=== PATIENT | female | born 1995 | race Caucasian/White ===

== ENCOUNTER → 2020-08-02 07:44 | Outpatient (CLI) | payer BC, SELFPAY ==
--- NOTE | ~2020-08-02 | US_ITS ---
US thyroid DATE: 08/02/2020 08:06 INDICATION: Hypothyroidism TECHNIQUE: Real-time and color flow imaging of the thyroid gland COMPARISON: None FINDINGS: The right lobe of the thyroid gland measures 5.2 x 2.9 x 1.9 cm. The left lobe of the thyroid gland measures 5.2 x 2.1 x 1.9 cm. There is coarse and heterogeneous echotexture of both lobes of the thyroid gland without discrete mas s lesion identified. IMPRESSION: Coarse heterogeneous echotexture throughout both thyroid lobes; no discrete mass lesion i s noted Reviewed, dictated and finalized at Location [facility]. Reviewed, dictated and finalized at location A. IMPRESSION: Coarse heterogeneous echotexture throughout both thyroid lobes; no discrete mass lesion is noted
== END ==
PROVIDERS: Visit Provider Internal Medicine Endocrinology, Diabetes & Metabolism
DX: E03.9 Hypothyroidism, unspecified (principal); R93.89 Abnormal findings on diagnostic imaging of other specified body structures
CPT/HCPCS: 76536

== ENCOUNTER 2022-03-15 16:10 | Outpatient (CLI) | payer OTHER, SELFPAY ==
[2022-03-15 16:37] LABS: Basophils Percent Auto 0.3 % (0.2-1.2); Eosinophils Percent Auto 0.4 % (0-4.4); Hematocrit 41.9 % (37.0-47.0); Hemoglobin 13.5 g/dL (12.0-15.0); Immature Granulocyte Absolute 0.02 K/mm3 (0.00-0.031); Immature Granulocyte Percent A 0.2 % (0-0.5); Lymphocytes Absolute Auto 2.85 K/mm3 (0.9-3.2); Lymphocytes Percent Auto 27.7 % (18.3-44.2); Mean Corpuscular HGB Conc 32.2 g/dl (32-36); Mean Corpuscular Hemoglobin 28.1 pg (26-34); Mean Corpuscular Volume 87.3 fl (80-100); Mean Platelet Volume 10.4 fl (7.4-10.4); Monocytes Absolute Auto 0.6 K/mm3 (0.1-0.6); Monocytes Percent Auto 5.7 % (2.6-8.5); Neutrophils Absolute Auto 6.8 K/mm3 (1.3-6.7); Neutrophils Percent Auto 65.7 % (45.5-73.1); Platelet Count Result 218 k/mm3 (150-375); Red Cell Distribution Width 13.7 % (11.5-14.5); White Blood Count 10.3 K/mm3 (4.5-10.0)
[2022-03-15 16:54] LABS: Alanine Aminotransferase 14 U/L (4-35); Albumin Level 4.6 g/dL (3.5-5.1); Alkaline Phosphatase 75 U/L (38-126); Anion Gap 10 mmol/L (8-16); Aspartate Amino Transferase 28 U/L (14-36); Bilirubin,Total 0.3 mg/dL (0.2-1.3); Blood Urea Nitrogen 7 mg/dL (7-17); Calcium 9.1 mg/dL (8.4-10.2); Carbon Dioxide 21 mmol/L (22-30); Chloride 105 mmol/L (98-107); Cholesterol 213 mg/dL (0-200); Estimated Glomerular Filt Rate > 60; Glucose 92 mg/dL (65-110); HDL Direct 82 mg/dL; Potassium 4.1 mmol/L (3.4-5.0); Sodium 136 mmol/L (137-145); Triglycerides 108 mg/dL (<150)
[2022-03-15 17:01] LABS: LDL Cholesterol Direct 98 mg/dL
[2022-03-15 18:08] LABS: Vitamin D 25 Hydroxy 69.9 ng/mL
== END 2022-03-15 16:11 | disposition home or self-care (01) ==
LOC: ANHLAB 16:13
PROVIDERS: Visit Provider Nurse Practitioner
DX: R53.83 Other fatigue (principal); E55.9 Vitamin D deficiency, unspecified; E03.9 Hypothyroidism, unspecified; Z13.220 Encounter for screening for lipoid disorders; Z13.6 Encounter for screening for cardiovascular disorders
CPT/HCPCS: 36415; 80053; 80061; 82306; 84443; 85025

== ENCOUNTER 2022-03-17 10:52 | Outpatient (CLI) | payer OTHER, SELFPAY | END 2022-03-17 10:53 | disposition home or self-care (01) | LOC: ANHLAB 10:57 | PROVIDERS: PCP Physician Assistant; Visit Provider Obstetrics & Gynecology Gynecology | DX: O26.851 Spotting complicating pregnancy, first trimester (principal); O26.21 Pregnancy care for patient with recurrent pregnancy loss, first trimester | CPT/HCPCS: 36415; 84702 ==

== ENCOUNTER 2022-03-18 13:16 | Outpatient (CLI) | payer OTHER, SELFPAY ==
[2022-03-18 14:46] LABS: Basophils Percent Auto 0.4 % (0.2-1.2); Eosinophils Absolute Auto 0.1 K/mm3 (0-0.3); Eosinophils Percent Auto 0.6 % (0-4.4); Hematocrit 38.2 % (37.0-47.0); Hemoglobin 12.6 g/dL (12.0-15.0); Immature Granulocyte Absolute 0.03 K/mm3 (0.00-0.031); Immature Granulocyte Percent A 0.3 % (0-0.5); Lymphocytes Absolute Auto 2.83 K/mm3 (0.9-3.2); Lymphocytes Percent Auto 27.7 % (18.3-44.2); Mean Corpuscular Hemoglobin 28.3 pg (26-34); Mean Corpuscular Volume 85.7 fl (80-100); Mean Platelet Volume 10.1 fl (7.4-10.4); Monocytes Absolute Auto 0.6 K/mm3 (0.1-0.6); Monocytes Percent Auto 5.4 % (2.6-8.5); Neutrophils Absolute Auto 6.7 K/mm3 (1.3-6.7); Neutrophils Percent Auto 65.6 % (45.5-73.1); Platelet Count Result 214 k/mm3 (150-375); Red Blood Count 4.46 M/mm3 (4.2-5.4); Red Cell Distribution Width 13.6 % (11.5-14.5); White Blood Count 10.2 K/mm3 (4.5-10.0)
[2022-03-18 15:38] LABS: Vitamin D 25 Hydroxy 63.1 ng/mL
[2022-03-18 15:55] LABS: Hepatitis B Surface Antigen Negative (Negative); Rubella IgG Antibody 60.4 IU/ML
[2022-03-18 15:56] LABS: HIV 1/2 Ab P24 Ag Result Negative (Negative)
[2022-03-18 16:10] LABS: Hepatitis C Virus Antibody Negative (Negative)
[2022-03-18 16:33] LABS: Hemoglobin A1C 4.7 % (<5.7)
[2022-03-19 07:20] LABS: Rapid Plasma Reagin Non-Reactive (NonReactive)
== END 2022-03-18 13:17 | disposition home or self-care (01) ==
PROVIDERS: PCP Physician Assistant; Visit Provider Obstetrics & Gynecology Gynecology
DX: Z34.90 Encounter for supervision of normal pregnancy, unspecified, unspecified trimester (principal); Z3A.00 Weeks of gestation of pregnancy not specified
CPT/HCPCS: 36415; 82105; 82306; 82677; 83036; 84702; 85025; 86336; 86592; 86703; 86762; 86803; 86850; 86900; 86901; 87340; G0432

== ENCOUNTER 2022-03-24 13:33 | Outpatient (CLI) | payer OTHER, SELFPAY ==
--- NOTE | ~2022-03-24 | US_ITS ---
EXAMINATION: US OB <= 14 weeks fetus DATE: 03/24/2022 14:05 INDICATION: Spotting during first trimester . TECHNIQUE: Real-time pelvic ultrasound utilizing both a transvaginal and transabdominal probe was pe rformed. The interpreting radiologist was not present for the study. COMPARISON: None. FINDINGS: The uterus measures 14.9 x 10.5 x 7.6 cm. There is an intrauterine gestational sac. A yolk sac and f etal pole are identified. The crown rump length measures 7.2 cm, which correlates with an estimated g estational age of 13 weeks and 3 days. heart motion is identified measuring 134 beats per minut e (bpm) by M-mode Doppler. 11 x 4 x 5 mm hypoechoic region along the left inferior margin of the plac enta is equivocal for small subchorionic hematoma. The right and left ovaries are not visualized. There is no free fluid in the pelvis. IMPRESSION: 1. Single living fetus with heart rate of 134 bpm. 2. Gestational age by ultrasound of 13 weeks 3 day(s) +/- 1 week and 1 day(s) with ultrasound estima beto date of delivery (JUNAID) of 09/26/2022. 3. Possible very small subchorionic hematoma measuring 11 x 4 x 5 mm. Reviewed, dictated and finalized at location B. IMPRESSION: 1. Single living fetus with heart rate of 134 bpm. 2. Gestational age by ultrasound of 13 weeks 3 day(s) +/- 1 week and 1 day(s) with ultrasound estimated date of delivery (JUNAID) of 09/26/2022. 3. Possible very small subchorionic hematoma measuring 11 x 4 x 5 mm.
== END 2022-03-24 13:34 | disposition home or self-care (01) ==
LOC: ANHIMG 13:41
PROVIDERS: PCP Physician Assistant; Visit Provider Obstetrics & Gynecology Gynecology
DX: O26.851 Spotting complicating pregnancy, first trimester (principal); Z3A.13 13 weeks gestation of pregnancy
CPT/HCPCS: 76801

== ENCOUNTER → 2022-04-16 10:13 | Outpatient (CLI) | payer OTHER, SELFPAY ==
--- NOTE | ~2022-04-16 | US_ITS ---
US OB limited 04/16/2022 10:33 Indication: Subchorionic hemorrhage. Procedure: High-resolution Limited obstetrical ultrasound Comparison: 03/24/2022 Findings: There is a single living intrauterine in breech presentation with heart rat e of 149 BPM. Placenta is posterior measuring 3.5 cm to the cervix. No evidence for subchorionic hemo rrhage on the current study. Amniotic fluid is subjectively normal. Impression: 1: Single living intrauterine in breech presentation. 2: Interval resolution of subchorionic hematoma Reviewed, dictated and finalized at location B. Impression: 1: Single living intrauterine in breech presentation. 2: Interval resolution of subchorionic hematoma
== END ==
PROVIDERS: PCP Physician Assistant; Visit Provider Obstetrics & Gynecology Gynecology
DX: O36.8920 Maternal care for other specified fetal problems, second trimester, not applicable or unspecified (principal); Z3A.00 Weeks of gestation of pregnancy not specified
CPT/HCPCS: 76815

== ENCOUNTER → 2022-05-07 10:18 | Outpatient (CLI) | payer OTHER, SELFPAY ==
--- NOTE | ~2022-05-07 | US_ITS ---
EXAMINATION: US OB /maternal detail DATE: 05/07/2022 11:06 INDICATION: Second trimester anatomic survey, spotting TECHNIQUE: Real-time ultrasound of the pelvis was performed. COMPARISON: None. FINDINGS: There is a single living fetus transverse lie. The placenta is posterior and 5.5 cm from the internal cervical os. heart rate is 143 beats per minute (bpm). cardiac activity and movem ent are noted. The amniotic fluid index is subjectively normal. The following anatomy was identified as normal: 4 chamber heart 3 vessel cord cord insertion kidneys urinary bladder stomach spine ventricles cisterna magna cerebellum The following biometric data were obtained: Biparietal diameter (BPD): 4.4 cm; head circumference (HC): 17.0 cm; abdominal circumference (AC): 15 .1 cm; femur length (FL): 2.9 cm. These measurements are concordant. Estimated weight is 307 g +/- 46 g, which correlates with the 45th percentile when 09/26/2022 i s used as estimated date of delivery. As single measurements, these parameters are each equal to the following estimated gestational ages w ith ranges of +/- 2 standard deviations: BPD: 19 weeks 3 days ( 17 weeks 5 days - 21 weeks 1 days). HC: 19 weeks 5 days ( 18 weeks 1 days - 21 weeks 1 days). AC: 20 weeks 2 days ( 18 weeks 2 days - 22 weeks 3 days). FL: 19 weeks 0 days ( 17 weeks 1 days - 20 weeks 5 days). estimated gestational age based solely on measurements from this exam is 19 weeks 4 days +/- 1 weeks 3 days. IMPRESSION: 1. Single living fetus in transverse lie. 2. Estimated weight is 307 g +/- 46 g, which correlates with the 45th percentile when 2 is used as estimated date of delivery. Reviewed, dictated and finalized at location A. IMPRESSION: 1. Single living fetus in transverse lie. 2. Estimated weight is 307 g +/- 46 g, which correlates with the 45th per centile when 09/26/2022 is used as estimated date of delivery.
== END ==
PROVIDERS: PCP Physician Assistant; Visit Provider Obstetrics & Gynecology Gynecology
DX: O26.852 Spotting complicating pregnancy, second trimester (principal); Z3A.19 19 weeks gestation of pregnancy
CPT/HCPCS: 76805

== ENCOUNTER 2022-09-24 00:01 | Inpatient (IN) | payer OTHER, SELFPAY ==
[2022-09-24] VITALS (64 sets, daily range): BP systolic 84–141; BP diastolic 17–125; PULSE 47–141; RESP 16; TEMP 36.6–37.1; O2SAT 96–100; BMI 40.2
--- NOTE | 2022-09-24 00:38 | LDADM ---
This patient, Sue Leos, was admitted to Labor/Delivery/Recovery 109 on 09/24/22 at 00:01. Plans for labor, pain management and were discussed with patient. Patient/family oriented to hospital policies and general routines including ID bracelet, bed and alarms, visiting hours, pain management, procedures, bathroom and other care routines, personal items, smoking policy, room service/diet and guest tray routines, infant security routines, and visiting hours. Patient/Family are encouraged to report perceived risks to care and to ask questions if they do not understand what they are told or what they should do. See OBIX for further documentation.
[2022-09-24 01:03] LABS: Basophils Percent Auto 0.3 % (0.2-1.2); Eosinophils Absolute Auto 0.1 K/mm3 (0-0.3); Eosinophils Percent Auto 0.7 % (0-4.4); Hematocrit 38.3 % (37.0-47.0); Hemoglobin 12.5 g/dL (12.0-15.0); Immature Granulocyte Absolute 0.02 K/mm3 (0.00-0.031); Immature Granulocyte Percent A 0.2 % (0-0.5); Lymphocytes Absolute Auto 2.96 K/mm3 (0.9-3.2); Lymphocytes Percent Auto 32.2 % (18.3-44.2); Mean Corpuscular HGB Conc 32.6 g/dl (32-36); Mean Corpuscular Volume 82.7 fl (80-100); Mean Platelet Volume 11.7 fl (7.4-10.4); Monocytes Absolute Auto 0.6 K/mm3 (0.1-0.6); Monocytes Percent Auto 6.7 % (2.6-8.5); Neutrophils Absolute Auto 5.5 K/mm3 (1.3-6.7); Neutrophils Percent Auto 59.9 % (45.5-73.1); Platelet Count Result 191 k/mm3 (150-375); Red Blood Count 4.63 M/mm3 (4.2-5.4); Red Cell Distribution Width 14.4 % (11.5-14.5); White Blood Count 9.2 K/mm3 (4.5-10.0)
[2022-09-24] MEDS: AMPICILLIN 2 GM/NS 100 ML 2 GM/100 ML BAG IVPB (01:10)
[2022-09-24] MEDS: LACTATED RINGERS 1,000 ML 125 ML IV CONT ×2 (01:10→02:48)
[2022-09-24 01:55] LABS: HIV 1/2 Ab P24 Ag Result Negative (Negative)
--- NOTE | 2022-09-24 02:25 | WPDANESEPP ---
Anes - Eval Pre Procedure Procedure: labor epidural Date/Time: 09/24/22 02:25 Pre Op Diagnosis: IOL Patient Data Age: 27 Gender: F Height: 1.73 m Weight: 120 kg Last Vital Signs Temp 36.6 C 09/24/22 00:30 Pulse 75 09/24/22 02:16 BP 120/99 H 09/24/22 02:16 O2 Del Method Room Air 09/24/22 00:37 Allergies Allergy/AdvReac Type Severity Reaction Status Date / Time Pertussis Vaccines Allergy Severe Anaphylactic Verified 09/06/22 12:34 Shock onion Allergy Unknown Headache Verified 09/06/22 12:34 Home Medications Medication Instructions Recorded Confirmed Type albuterol sulfate 90 mcg/actuation 2 puff inhalation QID #8 grams 11/15/19 09/24/22 Rx aerosol inhaler (ProAir HFA) metformin 500 mg tablet 1,000 mg PO BID 11/15/19 09/24/22 History cholecalciferol (vitamin D3) 50 50 mcg PO DAILY 09/06/22 09/24/22 History mcg (2,000 unit) capsule (Vitamin D3) escitalopram oxalate 5 mg tablet 20 mg PO DAILY 09/06/22 09/24/22 History levothyroxine 175 mcg tablet 175 mcg PO DAILY 09/06/22 09/06/22 History (Synthroid) Laboratory Tests 09/24/22 09/24/22 09/24/22 00:35 00:35 00:35 WBC 9.2 K/mm3 K/mm3 (4.5-10.0) RBC 4.63 M/mm3 M/mm3 (4.2-5.4) Hgb 12.5 g/dL g/dL (12.0-15.0) Hct 38.3 % % (37.0-47.0) MCV 82.7 fl fl (80-100) MCH 27.0 pg pg (26-34) MCHC 32.6 g/dl g/dl (32-36) RDW 14.4 % % (11.5-14.5) Plt Count 191 k/mm3 k/mm3 (150-375) MPV 11.7 fl H fl (7.4-10.4) Immature Gran % (Auto) 0.2 % % (0-0.5) Neut % (Auto) 59.9 % % (45.5-73.1) Lymph % (Auto) 32.2 % % (18.3-44.2) [place] % (Auto) 6.7 % % (2.6-8.5) Eos % (Auto) 0.7 % % (0-4.4) Baso % (Auto) 0.3 % % (0.2-1.2) Lymph # (Auto) 2.96 K/mm3 K/mm3 (0.9-3.2) [place] # (Auto) 0.6 K/mm3 K/mm3 (0.1-0.6) Eos # (Auto) 0.1 K/mm3 K/mm3 (0-0.3) Baso # (Auto) 0.0 K/mm3 K/mm3 (0.0-0.1) Abs Immat Gran (auto) 0.02 K/mm3 K/mm3 (0.00-0.031) Absolute Neuts (auto) 5.5 K/mm3 K/mm3 (1.3-6.7) Absolute Nucleated RBC 0.0 K/mm3 K/mm3 (0.0-0.012) Nucleated RBC % 0.0 % % (0.0-0.2) RPR Pending HIV 1&2 Ab/P24 Ag 4thGn Blood Type B Positive Antibody Screen Negative 09/24/22 00:35 WBC RBC Hgb Hct MCV MCH MCHC RDW Plt Count MPV Immature Gran % (Auto) Neut % (Auto) Lymph % (Auto) [place] % (Auto) Eos % (Auto) Baso % (Auto) Lymph # (Auto) [place] # (Auto) Eos # (Auto) Baso # (Auto) Abs Immat Gran (auto) Absolute Neuts (auto) Absolute Nucleated RBC Nucleated RBC % RPR HIV 1&2 Ab/P24 Ag 4thGn Negative (Negative) Blood Type Antibody Screen Patient hx anesthesia problems: none Family hx anesthesia problems: none Results Review: All pre-operative results and documents have been reviewed as part of the pre-operative evaluation. [facility] Past Medical History Medical History Hypothyroidism Migraine headache PCOS (polycystic ovarian syndrome) Surgical History Surgical History History of tonsillectomy and adenoidectomy (~1998) History of wisdom tooth extraction (~2013) Family History Family History Grandparent Alzheimer disease Mother Mitral valve prolapse Social History Social History Social History: pt drinks 2 cups of caffeine per day Smoking status: Never smoker Second hand tobacco smoke exposure: No Alcohol intake: current
[2022-09-24] MEDS: OXYTOCIN 30 UNITS/NS 500 ML 30 UNITS/500 ML BAG 125 UNITS IV CONT (03:24)
--- NOTE | 2022-09-24 03:45 | WPDOBADMIT ---
Obstetrics - Admit Note Admission Note: record reviewed. No pertinent additions to the history and/or any subsequent changes in the physical findings that are not consistent with the expected course of the were found. Additions to the history and/or subsequent changes in the physical findings follow. None. Pt arrived in spontaneous labor, having regular uterine contractions.
--- NOTE | 2022-09-24 03:46 | P.PCNOB_ITS ---
OB - Delivery Note Procedure Delivery date: 09/24/22 Procedure: Events: Positive Group B Strep (GBS) Intrapartal Events: Other (Precipitous labor) Induction method: None Delivery monitor: External FHT and External Uterine Route of delivery: Episiotomy description: None Laceration Description: Superficial (bilateral periurethral laceration x 2, hemostatic. No repair required. ) Specimen: No Quantitative Blood Loss (ml): 150 Anesthesia type: Epidural Disposition: Floor Narrative: Called at 0220 that pt was 7cm and requesting epidural. Called at 0257 that pt was 8cm and had SROM. CNM en route to hospital at that time. Called at 0301 that pt was complete and 0 station. Arrived to bedside at 0321 and was under the warmer being cared for by staff. Pt with legs in stirrups, and remainder of umbilical cord clamped and near introitus. Cord blood obtained and placenta delivered at 0326. [place] Baby Date of : 09/24/22 Time of : 03:17 Weeks of gestation at delivery: 39 gender: Male Weight (pounds): 8 Weight (ounces): 2 presentation: vertex Placenta delivery description: Spontaneous Cord Vessel Description: 3 Vessels score one minute: 6 score five minutes: 9
--- NOTE | 2022-09-24 03:56 | PM.OBDSVD ---
DS: Admitting Diagnosis Discharge Date 09/26/22 Admitting Diagnosis labor Lanre's/Hypothyroidism Depression PCOS Hx Migraines GBS+ in DS: Discharge Diagnosis Discharge Diagnosis (1) PCOS (polycystic ovarian syndrome): Code(s): E28.2 - Polycystic ovarian syndrome Status: Chronic (2) Migraine headache: Code(s): G43.909 - Migraine, unspecified, not intractable, without status migrainosus Status: Chronic (3) Hypothyroidism: Code(s): E03.9 - Hypothyroidism, unspecified Status: Chronic (4) Anxiety disorder, unspecified: Code(s): F41.9 - Anxiety disorder, unspecified Status: Acute (5) Depression: Code(s): F32.A - Depression, unspecified Status: Acute (6) (normal spontaneous vaginal delivery): Code(s): O80 - Encounter for full-term uncomplicated delivery Status: Acute (7) Mother currently breast-feeding: Code(s): Z39.1 - Encounter for care and examination of lactating mother Status: Acute OB - DS: Summary Hospital Course Hospital Course: Uncomplicated OB Procedures : None OB Procedures Intrapartum: Spontaneous Vag Delivery (attended by RN) and GBS prophylaxis OB Procedures: : None Peripartum Data Infant Delivery Method: Natural Vaginal Laceration Description: Superficial Episiotomy description: None complications: none Time Spent with Patient Time attestation: Total time spent providing and/or coordinating discharge services: Exam Narrative: Alert and oriented. Mood is pleasant and cooperative. Urinating without difficulty or discomfort. Vaginal bleeding WNL. Denies passing any large clots. Perineum with minimal edema. Const: General: healthy appearing, no acute distress, alert and awake Orientation/consciousness: patient oriented x3 Limitations: no limitations Resp: Effort & Inspection: normal respiratory effort Auscultation: clear to auscultation bilaterally Cardio: Rate: regular rate GI: Inspection: normal to inspection Neuro: General: patient oriented x3 Extrem: General: normal to inspection Psych: Appearance: grossly normal Mental Status: mental status grossly normal Affect: normal affect Thought process: Normal thought process present DS: Data Data Completed and Pending Labs on day of discharge: Labs from last 24 hours 09/24/22 09/24/22 09/24/22 00:35 00:35 00:35 WBC RBC Hgb Hct MCV MCH MCHC RDW Plt Count MPV Immature Gran % (Auto) Neut % (Auto) Lymph % (Auto) [place] % (Auto) Eos % (Auto) Baso % (Auto) Lymph # (Auto) [place] # (Auto) Eos # (Auto) Baso # (Auto) Abs Immat Gran (auto) Absolute Neuts (auto) Absolute Nucleated RBC Nucleated RBC % RPR Pending HIV 1&2 Ab/P24 Ag 4thGn Negative Blood Type B Positive Antibody Screen Negative 09/24/22 00:35 WBC 9.2 RBC 4.63 Hgb 12.5 Hct 38.3 MCV 82.7 MCH 27.0 MCHC 32.6 RDW 14.4 Plt Count 191 MPV 11.7 H Immature Gran % (Auto) 0.2 Neut % (Auto) 59.9 Lymph % (Auto) 32.2 [place] % (Auto) 6.7 Eos % (Auto) 0.7 Baso % (Auto) 0.3 Lymph # (Auto) 2.96 [place] # (Auto) 0.6 Eos # (Auto) 0.1 Baso # (Auto) 0.0 Abs Immat Gran (auto) 0.02 Absolute Neuts (auto) 5.5 Absolute Nucleated RBC 0.0 Nucleated RBC % 0.0 RPR HIV 1&2 Ab/P24 Ag 4thGn Blood Type Antibody Screen Discharge Plan Discharge Attending physician on discharge: Jammie Herman Discharging Clinician: Danna Foreman Anticipated Discharge Date/Time: 09/26/22 11:23 Patient Disposition: Home, Self-Care Activity: may shower, no straining and pelvic rest Diet: as tolerated and regular Discharge Instructions: Continue vitamin daily and vitamin D supplement (if taking). You may take 1000mg tylenol every 6 hours and Ibuprofen (Motrin) 600mg every 6 hours. Patient Instructions: Antibiotic Fo
[2022-09-24] MEDS: BENZOCAINE 20% AER SPR (*SP) 56 GM CAN 1 SPRAY TOPICAL (05:27)
[2022-09-24] MEDS: WITCH HAZEL 40 PADS 1 PAD TOPICAL (05:27)
[2022-09-24] MEDS: DOCUSATE SODIUM 100 MG CAPSULE PO ×2 (08:15→19:28)
[2022-09-24] MEDS: MULTIVIT/MIN/PREN/FOL AC/IRON TABLET 1 TAB PO (08:15)
[2022-09-24] MEDS: LEVOTHYROXINE SODIUM 100 MCG, LEVOTHYROXINE SODIUM 75 MCG 175 MCG PO (08:15)
[2022-09-24] MEDS: ACETAMINOPHEN 325 MG TABLET 650 MG PO ×2 (08:15→21:15)
[2022-09-24] MEDS: IBUPROFEN 600 MG TABLET PO ×2 (13:00→19:28)
--- NOTE | 2022-09-24 14:29 | PC.NURSE ---
[id number] Introductions were made, then consulted with patient to assess needs related to . Mother led the conversation with her?plans to feed?her infant and the?experience so far. Resources provided for inpatient and outpatient services using a resource guide and mom/baby guide. Mother voiced understanding of information and requests assistance. Mother works well with her infant with encouragement and education. Encouraged understanding of the benefits of skin to skin (unwrapping and placing vertically on her chest), responsive feeding and how to watch for early feeding signs, frequency of feeding on demand about every 8-12 times in 24 hours (every 2-3 hours), milk production, duration of feeding, signs of adequate intake/output and how to record on the feeding sheet. Reviewed positioning and ear, shoulder, hip alignment, supporting the breast, asymmetrical latch (off-center), and leading with the chin with a big open side gape. Attempts were made to the left breast. would latch, take a few sucks and detach. After 15-20 min of attempting to encourage to latch on the left breast using different positions working with some natural instincts infant would make more efforts yet still not maintain latch. latched optimally to the right breast in football position. Education given to mother of how to visualize suck/swallow ratios and drinking at the breast. was able to maintain latch without discomfort to mother. Nipple care reviewed with optimal latch and good positioning. Reviewed good handwashing when or touching the breast/nipples to prevent infection. Resources used to facilitate learning were used with the tool and mom/baby guide. Mother voiced understanding of responsive feedings, stimulating with skin to skin, hand expressed colostrum, massage touch, talking to to encourage if it has been 2 -3 hours since the start of the last , to call if does not latch or there is discomfort with . Reported to the primary RN.
[2022-09-24 14:49] LABS: Rapid Plasma Reagin Non-Reactive (NonReactive)
[2022-09-24] MEDS: metFORMIN HCL 500 MG TABLET 1000 MG PO (19:28)
[2022-09-24] MEDS: ESCITALOPRAM OXALATE 10 MG TABLET 20 MG PO (19:28)
[2022-09-25] MEDS: IBUPROFEN 600 MG TABLET PO ×3 (01:14→16:00)
[2022-09-25 01:15] VITALS: BP 114/74; PULSE 72; RESP 16; TEMP 36.8; O2SAT 99
[2022-09-25 05:31] LABS: Hematocrit 33.3 % (37.0-47.0); Hemoglobin 10.5 g/dL (12.0-15.0)
[2022-09-25] MEDS: LEVOTHYROXINE SODIUM 100 MCG, LEVOTHYROXINE SODIUM 75 MCG 175 MCG PO (09:27)
[2022-09-25] MEDS: BENZOCAINE 20% AER SPR (*SP) 56 GM CAN 1 SPRAY TOPICAL (09:27)
[2022-09-25] MEDS: MULTIVIT/MIN/PREN/FOL AC/IRON TABLET 1 TAB PO (09:27)
[2022-09-25] MEDS: DOCUSATE SODIUM 100 MG CAPSULE PO ×2 (09:27→16:00)
[2022-09-25] MEDS: LANOLIN (LANSINOH) 7.5 GM CREAM 1 APPLIC TOPICAL (09:28)
[2022-09-25] MEDS: WITCH HAZEL 40 PADS 1 PAD TOPICAL (09:28)
[2022-09-25 09:30] VITALS: BP 113/76; PULSE 71; RESP 16; TEMP 36.6; O2SAT 99
--- NOTE | 2022-09-25 12:17 | WPDANLDPN2 ---
Anes-Prog Note L&D Date/Time: 09/25/22 12:17 Comfortable throughout: labor and delivery Neuraxial method: epidural Epidural/Spinal procedure site: clean & non-tender Neuro status: Neuro function grossly intact. Cardiovascular status: normal Respiratory status: normal Airway patency: baseline Mental status: baseline Post-Op hydration status: normal Vital Signs: Last Vital Signs Temp 36.8 C 09/25/22 01:15 Pulse 72 09/25/22 01:15 Resp 16 09/25/22 01:15 BP 114/74 09/25/22 01:15 Pulse Ox 99 09/25/22 01:15 O2 Del Method Room Air 09/24/22 13:20 Pain score (VAS): 12/07 I/O: Intake & Output 09/24/22 09/25/22 09/25/22 23:59 07:59 15:59 Intake Total 240 Balance 240 Post-procedural complaints: none Patient feedback: Patient satisfied with anesthetic care.
[2022-09-25] MEDS: ACETAMINOPHEN 325 MG TABLET 650 MG PO ×2 (12:45→20:30)
--- NOTE | 2022-09-25 13:29 | P.PNOB_ITS ---
OB - PN: Subj Subjective Date/time seen: 09/25/22 1310 Patient comments: no complaints and pain well controlled baby status: doing well and nursing well [place] feeding status: exclusively breast feeding OB - PN: Obj Data Labs CBC & Chem 7: 09/25/22 05:19 Labs: Laboratory Results - last 24 hr 09/24/22 09/25/22 00:35 05:19 Hgb 10.5 L Hct 33.3 L RPR Non-reactive OB - PN A/P Plan day: 1 Plan: routine care Time Spent With Patient Time: Total time spent is greater than 50% in coordination of care (as documented) at patient's floor/unit and/or counseling patient: Review of Systems Review of Systems: All systems reviewed & are unremarkable except as noted in HPI and below Exam Narrative: Alert and oriented. Mood is pleasant and cooperative. Urinating without difficulty. Denies passing any large clots. Perineum with minimal edema. Const: General: cooperative, healthy appearing and no acute distress Orientation/consciousness: patient oriented x3 Limitations: no limitations Resp: Effort & Inspection: normal respiratory effort Auscultation: clear to auscultation bilaterally Cardio: Rate: regular rate GI: Inspection: normal to inspection Neuro: General: patient oriented x3 Extrem: General: normal to inspection Psych: Appearance: grossly normal Mental Status: mental status grossly normal Affect: normal affect Thought process: Normal thought process present
[2022-09-25] MEDS: ESCITALOPRAM OXALATE 10 MG TABLET 20 MG PO (20:29)
[2022-09-25] MEDS: metFORMIN HCL 500 MG TABLET 1000 MG PO (20:29)
[2022-09-25 20:30] VITALS: BP 126/69; PULSE 69; RESP 18; TEMP 36.6; O2SAT 99
[2022-09-26] MEDS: IBUPROFEN 600 MG TABLET PO ×2 (00:50→09:31)
[2022-09-26] MEDS: ACETAMINOPHEN 325 MG TABLET 650 MG PO (05:00)
[2022-09-26] MEDS: LEVOTHYROXINE SODIUM 100 MCG, LEVOTHYROXINE SODIUM 75 MCG 175 MCG PO (06:32)
[2022-09-26 07:50] VITALS: BP 128/86; PULSE 60; RESP 16; TEMP 36.7; O2SAT 98
[2022-09-26] MEDS: metFORMIN HCL 500 MG TABLET PO (09:30)
[2022-09-26] MEDS: DOCUSATE SODIUM 100 MG CAPSULE PO (09:30)
[2022-09-26] MEDS: MULTIVIT/MIN/PREN/FOL AC/IRON TABLET 1 TAB PO (09:31)
--- NOTE | 2022-09-26 11:21 | PM.OBPNVD ---
OB - PN: Subj Subjective Date/time seen: 09/26/22 11:10 Patient comments: no complaints and pain well controlled baby status: doing well and nursing well [place] feeding status: exclusively breast feeding OB - PN: Obj Data Labs CBC & Chem 7: 09/25/22 05:19 OB - PN A/P Plan day: 2 Plan: discharge home Time Spent With Patient Time: Total time spent is greater than 50% in coordination of care (as documented) at patient's floor/unit and/or counseling patient: Review of Systems Review of Systems: All systems reviewed & are unremarkable except as noted in HPI and below Exam Narrative: Alert and oriented. Mood is pleasant and cooperative. Urinating without difficulty or discomfort. Vaginal bleeding WNL. Denies passing any large clots. Perineum with minimal edema. Const: General: healthy appearing, no acute distress, alert and awake Orientation/consciousness: patient oriented x3 Limitations: no limitations Resp: Effort & Inspection: normal respiratory effort Auscultation: clear to auscultation bilaterally Cardio: Rate: regular rate GI: Inspection: normal to inspection Neuro: General: patient oriented x3 Extrem: General: normal to inspection Psych: Appearance: grossly normal Mental Status: mental status grossly normal Affect: normal affect Thought process: Normal thought process present
[2022-09-27 09:03] VITALS: BP 137/83; PULSE 68; RESP 20; TEMP 37; O2SAT 98
== END 2022-09-26 12:37 | disposition home or self-care (01) | DRG 806 ==
LOC: ANHLDR 00:04 → ANHOB2 05:46
PROVIDERS: Advanced Practice Midwife; Admitting Provider Obstetrics & Gynecology Gynecology; PCP Physician Assistant; Visit Provider Obstetrics & Gynecology Gynecology
DX: O62.3 Precipitate labor (principal); O99.354 Diseases of the nervous system complicating childbirth; Z37.0 Single live birth; Z3A.39 39 weeks gestation of pregnancy; O99.824 Streptococcus B carrier state complicating childbirth; O99.284 Endocrine, nutritional and metabolic diseases complicating childbirth; E03.9 Hypothyroidism, unspecified; O71.82 Other specified trauma to perineum and vulva; E28.2 Polycystic ovarian syndrome; O99.344 Other mental disorders complicating childbirth; F41.9 Anxiety disorder, unspecified; F32.A Depression, unspecified; G43.909 Migraine, unspecified, not intractable, without status migrainosus
CPT/HCPCS: 36415; 85014; 85018; 85025; 86592; 86703; 86850; 86900; 86901; A9270; G0432; J0290; J2590; J2795; J7120

== ENCOUNTER → 2024-01-06 11:14 | Outpatient (CLI) | payer OTHER, SELFPAY ==
--- NOTE | ~2024-01-06 | US_ITS ---
EXAMINATION: US OB transvaginal DATE: 01/06/2024 11:36 INDICATION: First trimester dating TECHNIQUE: Real-time pelvic transabdominal and transvaginal ultrasound was performed. COMPARISON: None. FINDINGS: The uterus measures 9.8 x 6.8 x 7.8 cm. There is an intrauterine gestational sac. A yolk sa c is identified. heart motion is identified measuring 168 beats per minute (bpm) by M-mode Dopp ler. The crown rump length measures 16 mm, which correlates with an estimated gestational age o f 8 weeks and 0 day(s) (+/-) 5 day(s). The left ovary is not visualized however no left adnexal abnormality is seen. The right ovary measure s 3.4 x 3.1 x 2.3 cm. There is normal vascular flow in the right ovary. There is no free fluid in the pelvis. IMPRESSION: 1. Live intrauterine with an estimated gestational age of 8 weeks and 0 day(s) (+/-) 5 day( s) and an estimated delivery date of 08/17/2024. Reviewed, dictated and finalized at location B. [employer] WORK[employer] IMPRESSION: 1. Live intrauterine with an estimated gestational age of 8 weeks and 0 day(s) (+/-) 5 day(s) and an estimated delivery date of 08/17/2024.
== END ==
PROVIDERS: PCP Advanced Practice Midwife; Visit Provider Advanced Practice Midwife
DX: Z36.87 Encounter for antenatal screening for uncertain dates (principal)
CPT/HCPCS: 76817

== ENCOUNTER 2024-02-15 12:50 | Outpatient (CLI) | payer OTHER, SELFPAY ==
--- NOTE | ~2024-02-15 | US_ITS ---
EXAMINATION: US OB <= 14 weeks fetus DATE: 02/15/2024 13:10 INDICATION: Spotting during first trimester TECHNIQUE: Real-time pelvic transabdominal and transvaginal ultrasound was performed. COMPARISON: 01/06/2024 FINDINGS: The uterus measures 16.7 x 7.7 x 12.0 cm. There is an intrauterine gestational sac. The [place] cent[place] is anterior. There is a possible synechia. heart motion is identified measuring 142 beats per minute (bpm) by M-mode Doppler. The crown rump length measures 8.6 cm, which correlates wi an estimated gestational age of 14 weeks and 3 day(s) (+/-) 9 day(s). There is no free fluid in th e pelvis. IMPRESSION: 1. Live intrauterine with an estimated gestational age of 14 weeks and 3 day(s) (+/-) 9 day (s) and an estimated delivery date of 08/12/2024. 2. No sonographic correlate for spotting. 3. Possible synechia. Reviewed, dictated and finalized at location F. IMPRESSION: 1. Live intrauterine with an estimated gestational age of 14 weeks an d 3 day(s) (+/-) 9 day(s) and an estimated delivery date of 08/12/2024. 2. No sonographic correlate for spotting. 3. Possible synechia.
== END 2024-02-15 12:51 ==
PROVIDERS: PCP Obstetrics & Gynecology Gynecology; Visit Provider Obstetrics & Gynecology Gynecology
DX: O26.852 Spotting complicating pregnancy, second trimester (principal); Z3A.00 Weeks of gestation of pregnancy not specified
CPT/HCPCS: 76801

== ENCOUNTER 2024-08-01 21:26 | Inpatient (IN) | payer OTHER, SELFPAY ==
[2024-08-01] VITALS (24 sets, daily range): BP systolic 112–116; BP diastolic 67–80; PULSE 72–108; TEMP 36.3–36.4; O2SAT 97–100; BMI 42.0
--- NOTE | 2024-08-01 22:19 | OBADM ---
This patient, Sue Leos, admitted to the OB room Labor/Delivery/Recovery 107 for observation. Patient/family oriented to hospital policies and general routines including ID bracelet, bed and alarms, visiting hours, pain management, procedures, bathroom and other care routines, personal items, smoking policy, room service/diet, and visiting hours. Patient/Family are encouraged to report perceived risks to care and to ask questions if they do not understand what they are told or what they should do.
--- NOTE | 2024-08-01 22:27 | PC.NURSE ---
Call placed to [facility] with report of pt, SROM @ 1999 clear fluid, FHR, CTX, SVE,.Order to admit pt. FHR arrhythmia explained, unable to consistently trace FHR, however FHR is adubile. CNM is okay with FHR arrhythmia monitoring. CNM to come in.
[2024-08-01 22:38] LABS: Basophils Percent Auto 0.2 % (0.2-1.2); Eosinophils Absolute Auto 0.1 K/mm3 (0-0.3); Eosinophils Percent Auto 0.6 % (0-4.4); Hematocrit 39.6 % (37.0-47.0); Hemoglobin 13.5 g/dL (12.0-15.0); Immature Granulocyte Absolute 0.02 K/mm3 (0.00-0.031); Immature Granulocyte Percent A 0.2 % (0-0.5); Lymphocytes Absolute Auto 3.14 K/mm3 (0.9-3.2); Lymphocytes Percent Auto 31.9 % (18.3-44.2); Mean Corpuscular HGB Conc 34.1 g/dl (32-36); Mean Corpuscular Hemoglobin 30.3 pg (26-34); Mean Corpuscular Volume 88.8 fl (80-100); Monocytes Absolute Auto 0.7 K/mm3 (0.1-0.6); Monocytes Percent Auto 6.7 % (2.6-8.5); Neutrophils Absolute Auto 5.9 K/mm3 (1.3-6.7); Neutrophils Percent Auto 60.4 % (45.5-73.1); Platelet Count Result 170 k/mm3 (150-375); Red Blood Count 4.46 M/mm3 (4.2-5.4); Red Cell Distribution Width 13.7 % (11.5-14.5); White Blood Count 9.8 K/mm3 (4.5-10.0)
[2024-08-01] MEDS: CALCIUM CARBONATE (TUMS) 500 MG (200 MG ELEMENTAL) PO (22:41)
--- NOTE | 2024-08-01 22:41 | WPDOBADMIT ---
Obstetrics - Admit Note Admission Note: record reviewed. No pertinent additions to the history and/or any subsequent changes in the physical findings that are not consistent with the expected course of the were found. Additions to the history and/or subsequent changes in the physical findings follow. SROM, clear fluid.
--- NOTE | 2024-08-01 22:42 | PM.OBPNLAB ---
Pain Control Date/time seen: 08/01/24 22:38 Pain control: tolerating well Contractions Monitor mode: External Contraction frequency: 2 (1.5-2.5) Contraction duration: 60 (50-70) Contraction pattern: Regular Contraction phase: Contraction Contraction intensity: Moderate Status status: Category ll Assessment and Plan Plan: continuous present management Comments: CNM to bedside. Pt with SROM at home of clear fluid. Fetus with a known arrhythmia (PACs per recent MFM US). FHTs audible in the 140s, sometimes halving and tracing in the 70s range. Sue has a history of precipitous . She is feeling increasingly more intense and more frequent contractions but having no severe pain. Plan expectant management. Dr. Kamryn Adhikari previouisly notified.
[2024-08-01 23:20] LABS: Rapid Plasma Reagin Non-Reactive (NonReactive)
[2024-08-01 23:25] LABS: HIV 1/2 Ab P24 Ag Result Negative (Negative)
[2024-08-02] VITALS (14 sets, daily range): BP systolic 101–134; BP diastolic 54–101; PULSE 66–83; RESP 16–18; TEMP 36.6–37.3; O2SAT 96–100
--- NOTE | 2024-08-02 00:10 | PM.OBPNLAB ---
Pain Control Date/time seen: 08/02/24 00:10 Pain control: tolerating well Pelvic Exam Dilation (cm): 9 Comments: per RN exam Contractions Monitor mode: External Contraction frequency: 2 (1.5-2.5) Contraction pattern: Regular Contraction phase: Contraction Contraction intensity: Moderate Status status: Category ll Comments: FHTs audibly 140s, frequently tracing in the 70s due to known arrhythmia Assessment and Plan Assessment: active labor Comments: Anticipate vaginal .
--- NOTE | 2024-08-02 00:11 | PM.OBPRVD ---
OB - Vaginal Delivery Note Procedure Delivery date: 08/02/24 Events: Polyhydramnios and Other ( arrhythmia) Intrapartal Events: Other (precipitous labor) Induction method: None Delivery monitor: External FHT and External Uterine Route of delivery: Episiotomy description: None Laceration Description: Superficial (periurethral. 1.5cm) Specimen: Yes Quantitative Blood Loss (ml): 275 Anesthesia type: None Disposition: Floor Complications: No immediate complications Narrative: Sue arrived from home after spontaneous rupture of membranes. Her contractions began spontaneously and her cervix made rapid change to complete dilation. She pushed with contractions and quickly delivered the head over intact perineum. After this time there is a small amount of restitution observed and controlled delivery of the anterior and posterior shoulders followed by remainder of the infant. The infant was placed on the maternal abdomen and dried and stimulated. After 30 seconds but before 1 minute of life, the cord was doubly clamped and cut at the request of the pediatric team. There was spontaneous delivery of the placenta in the Schultze presentation. There was an 8 cm, flat, oval-shaped blood clot present in the membranes that delivered with the placenta. The vulva and vaginal mucosa were examined. A very small superficial periurethral laceration was noted to be hemostatic, no repair required. There was excellent uterine tone and hemostasis achieved. All delivery counts correct. Mother may be skin to skin in the delivery room. [place] Baby Date of : 08/02/24 Time of : 00:28 Gestational Age by Date: 38 Infant gender: Female Weight (pounds): 8 Weight (ounces): 0 presentation: vertex position: Left Occiput Anterior Placenta delivery description: Spontaneous and Other (8cm flat dark red clot present with delivery of placenta. ) Cord Vessel Description: 3 Vessels and Clamped/Cut score one minute: 5 score five minutes: 8
[2024-08-02] MEDS: OXYTOCIN 30 UNITS/NS 500 ML 30 UNITS/500 ML BAG 999 UNITS IV CONT (00:32)
--- NOTE | 2024-08-02 01:03 | PM.OBDSVD ---
DS: Admitting Diagnosis Discharge Date 08/03/24 Admitting Diagnosis 29 y.o. [place] PCOS Hx Migraines LGA Polyhydramnios DS: Discharge Diagnosis Discharge Diagnosis (1) (normal spontaneous vaginal delivery): Code(s): O80 - Encounter for full-term uncomplicated delivery Status: Acute (2) Mother currently breast-feeding: Code(s): Z39.1 - Encounter for care and examination of lactating mother Status: Acute OB - DS: Summary Hospital Course Hospital Course: Uncomplicated OB Procedures : Ultrasound OB Procedures Intrapartum: Spontaneous Vag Delivery OB Procedures: : None Peripartum Data Delivery Method: Natural Vaginal Laceration Description: Superficial (periurethral. 1.5cm) Episiotomy description: None complications: none Status at Discharge Functional status at discharge: independent ambulation Overall status at discharge: patient is progressing back to baseline Time Spent with Patient Time attestation: Total time spent providing and/or coordinating discharge services: Exam Narrative: Alert and oriented. Mood is pleasant and cooperative. Perineum with minimal edema. Fundus firm and below umbilicus. Const: General: cooperative, healthy appearing, no acute distress and alert Orientation/consciousness: patient oriented x3 Limitations: no limitations Resp: Effort & Inspection: normal respiratory effort and able to speak in complete sentences Cardio: Rate: regular rate Skin: General skin exam: normal color and no rashes or lesions noted Neuro: General: patient oriented x3 and moves all extremities Cognition (Neuro): normal cognition Extrem: General: normal to inspection and no calf tenderness Psych: Appearance: grossly normal Mental Status: mental status grossly normal Affect: normal affect Thought process: Normal thought process present DS: Data Data Completed and Pending Labs on day of discharge: Labs from last 24 hours 08/01/24 22:09 WBC 9.8 RBC 4.46 Hgb 13.5 D Hct 39.6 MCV 88.8 MCH 30.3 MCHC 34.1 RDW 13.7 Plt Count 170 MPV 11.0 H Immature Gran % (Auto) 0.2 Neut % (Auto) 60.4 Lymph % (Auto) 31.9 [place] % (Auto) 6.7 Eos % (Auto) 0.6 Baso % (Auto) 0.2 Lymph # (Auto) 3.14 [place] # (Auto) 0.7 H Eos # (Auto) 0.1 Baso # (Auto) 0.0 Abs Immat Gran (auto) 0.02 Absolute Neuts (auto) 5.9 Absolute Nucleated RBC 0.000 Nucleated RBC % 0.0 RPR Non-reactive HIV 1&2 Ab/P24 Ag 4thGn Negative Blood Type B Positive Antibody Screen Negative Discharge Plan Discharge Attending physician on discharge: Jammie Herman Discharging Clinician: Danna Foreman Anticipated Discharge Date/Time: 08/03/24 10:00 Patient Disposition: Home, Self-Care Activity: pelvic rest Diet: regular Wound Care Instructions: follow printed instructions Discharge Instructions: Continue taking your vitamin and any other supplements as previously directed (Examples: Iron, Vitamin D). You may take Tylenol 1000mg over the counter every 6 hours as needed for pain. Do not exceed 4000mg of Tylenol daily. You may continue using tucks pads and dermoplast spray if needed for a few more days. Depression Notify provider for signs or symptoms. These may include- Feelings: Feeling anxious, angry, hopeless, guilt, or loss of interest/pleasure in activities you normally enjoy. Mood swings or panic attacks. General: Extreme fatigue, loss of your appetite, feeling restless. Crying excessively, irritability, insomnia Psychological: Lack of concentration, depression or fear, unwanted thoughts Weight: Significant gain or loss Safety: Thoughts of harming yourself or your baby. Patient Instructions: Antibiotic Form Stand Alone Forms: General Discharge Information Follow-up/Referrals: Danna Foreman, AID[facility] [Certified Nurse Midwif
[2024-08-02] MEDS: OXYTOCIN 30 UNITS/NS 500 ML 30 UNITS/500 ML BAG 125 UNITS IV CONT (01:04)
[2024-08-02] MEDS: IBUPROFEN 600 MG TABLET PO ×3 (01:37→21:20)
[2024-08-02] MEDS: ACETAMINOPHEN 325 MG TABLET 650 MG PO ×2 (02:29→15:42)
[2024-08-02] MEDS: BENZOCAINE 20% AER SPR (*SP) 56 GM CAN 1 SPRAY TOPICAL (02:30)
[2024-08-02] MEDS: WITCH HAZEL 40 PADS 1 PAD TOPICAL (02:30)
--- NOTE | 2024-08-02 02:58 | OBPPTRN ---
Patient transferred to post room #290 via wheelchair. Support person present. Oriented to unit, room, information board, rooming in, admission packet and security measures. Patient verbalizes understanding.
[2024-08-02] MEDS: LEVOTHYROXINE SODIUM 50 MCG TABLET PO (06:54)
[2024-08-02] MEDS: LEVOTHYROXINE SODIUM 100 MCG TABLET PO (06:54)
[2024-08-02] MEDS: metFORMIN HCL 500 MG TABLET 1000 MG PO ×2 (08:34→21:20)
[2024-08-02] MEDS: MULTIVIT/MIN/PREN/FOL AC/IRON TABLET 1 TAB PO (08:34)
[2024-08-02] MEDS: ESCITALOPRAM OXALATE 10 MG TABLET 20 MG PO (08:34)
--- NOTE | 2024-08-02 10:00 | PC.NURSE ---
Introductions were made, then consulted with patient to assess needs related to . Mother led the conversation with her?plans to feed?her infant and denies needing additional help with . Mother states that she had a hard time arousing infant to nurse but once she does, latches well with no pain. No feeding observed at this time, however, mother agrees to call RN for next feeding to observe latch. Mother voiced understanding of skin to skin, stimulating with massage touch, responsive feedings, talking to infant to encourage if it has been 2 -2.5 hours since the start of the last , to call if does not latch, or if there is discomfort with . Mother voiced understanding of information and will call if there is a request for assistance. Reported to the Primary RN.
--- NOTE | 2024-08-02 10:49 | PM.OBPNVD ---
OB - PN: Subj Subjective Date/time seen: 08/02/24 10:40 Interval history: PPD0. Doing well. Urinating without difficulty. Denies passing any large clots. Denies dizziness with ambulating. Tolerating po food and fluids. Bonding with . well Patient comments: pain well controlled [place] baby status: nursing well [place] feeding status: exclusively breast feeding OB - PN: Obj Data Labs 08/01/24 22:09 Labs: Laboratory Results - last 24 hr 08/01/24 22:09 WBC 9.8 RBC 4.46 Hgb 13.5 D Hct 39.6 MCV 88.8 MCH 30.3 MCHC 34.1 RDW 13.7 Plt Count 170 MPV 11.0 H Immature Gran % (Auto) 0.2 Neut % (Auto) 60.4 Lymph % (Auto) 31.9 [place] % (Auto) 6.7 Eos % (Auto) 0.6 Baso % (Auto) 0.2 Lymph # (Auto) 3.14 [place] # (Auto) 0.7 H Eos # (Auto) 0.1 Baso # (Auto) 0.0 Abs Immat Gran (auto) 0.02 Absolute Neuts (auto) 5.9 Absolute Nucleated RBC 0.000 Nucleated RBC % 0.0 RPR Non-reactive HIV 1&2 Ab/P24 Ag 4thGn Negative Blood Type B Positive Antibody Screen Negative OB - PN A/P Assessment and Plan (1) (normal spontaneous vaginal delivery): Code(s): O80 - Encounter for full-term uncomplicated delivery Status: Acute (2) Mother currently breast-feeding: Code(s): Z39.1 - Encounter for care and examination of lactating mother Status: Acute Plan day: 0 Plan: routine care Time Spent With Patient Time: Total time spent is greater than 50% in coordination of care (as documented) at patient's floor/unit and/or counseling patient: Review of Systems Review of Systems: All systems reviewed & are unremarkable except as noted in HPI and below Exam Narrative: Alert and oriented. Mood is pleasant and cooperative. Perineum with minimal edema. Fundus firm and below umbilicus. Const: General: cooperative, healthy appearing, no acute distress and alert Orientation/consciousness: patient oriented x3 Limitations: no limitations Resp: Effort & Inspection: normal respiratory effort and able to speak in complete sentences Auscultation: clear to auscultation bilaterally Cardio: Rate: regular rate GI: Inspection: normal to inspection Auscultation: normal bowel sounds : General: Yes bladder normal to palpation External Female Exam: other (lochia WNL) Bimanual exam- vagina & uterus: bladder normal to palpation Other: Fundus firm and below U Skin: General skin exam: normal color and no rashes or lesions noted Neuro: General: patient oriented x3 and moves all extremities Cognition (Neuro): normal cognition Extrem: General: normal to inspection and no calf tenderness Psych: Appearance: grossly normal Mental Status: mental status grossly normal Affect: normal affect Thought process: Normal thought process present
[2024-08-03] MEDS: ACETAMINOPHEN 325 MG TABLET 650 MG PO ×2 (02:24→18:48)
[2024-08-03] MEDS: metFORMIN HCL 500 MG TABLET 1000 MG PO ×2 (07:56→17:44)
[2024-08-03] MEDS: ESCITALOPRAM OXALATE 10 MG TABLET 20 MG PO (07:57)
[2024-08-03] MEDS: LEVOTHYROXINE SODIUM 100 MCG TABLET PO (07:58)
[2024-08-03] MEDS: MULTIVIT/MIN/PREN/FOL AC/IRON TABLET 1 TAB PO (07:58)
[2024-08-03] MEDS: LEVOTHYROXINE SODIUM 50 MCG TABLET PO (07:59)
[2024-08-03 08:00] VITALS: PULSE 71; RESP 16; O2SAT 99
[2024-08-03] MEDS: IBUPROFEN 600 MG TABLET PO ×3 (08:01→18:49)
--- NOTE | 2024-08-03 08:08 | PM.OBPNVD ---
OB - PN: Subj Subjective Date/time seen: 08/03/24 0745 Interval history: PPD1. Continues Doing well. Urinating without difficulty. Denies passing any large clots. Denies dizziness with ambulating. Tolerating po food and fluids. Bonding with . well. Desires DC home today. Patient comments: no complaints and pain well controlled [place] baby status: nursing well [place] feeding status: exclusively breast feeding OB - PN: Obj Data Labs 08/01/24 22:09 OB - PN A/P Assessment and Plan (1) Mother currently breast-feeding: Code(s): Z39.1 - Encounter for care and examination of lactating mother Status: Acute (2) (normal spontaneous vaginal delivery): Code(s): O80 - Encounter for full-term uncomplicated delivery Status: Acute Plan day: 1 Plan: discharge home Time Spent With Patient Time: Total time spent is greater than 50% in coordination of care (as documented) at patient's floor/unit and/or counseling patient: Review of Systems Review of Systems: All systems reviewed & are unremarkable except as noted in HPI and below Exam Narrative: Alert and oriented. Mood is pleasant and cooperative. Perineum with minimal edema. Fundus firm and below umbilicus. Const: General: cooperative, healthy appearing, no acute distress and alert Orientation/consciousness: patient oriented x3 Limitations: no limitations Resp: Effort & Inspection: normal respiratory effort and able to speak in complete sentences Cardio: Rate: regular rate Skin: General skin exam: normal color and no rashes or lesions noted Neuro: General: patient oriented x3 and moves all extremities Cognition (Neuro): normal cognition Extrem: General: normal to inspection and no calf tenderness Psych: Appearance: grossly normal Mental Status: mental status grossly normal Affect: normal affect Thought process: Normal thought process present
[2024-08-03 08:10] VITALS: BP 118/77; PULSE 71; RESP 16; TEMP 36.2; O2SAT 99
--- NOTE | 2024-08-03 10:15 | PC.NURSE ---
Educated mother on feeding more frequently to promote milk production and weight gain for . Mother was limiting infants feedings to 15 minutes on each breast, educated mother that in the early days limiting feedings is not necessary and she should let nurse for as long as remains at the breast. Mother states understanding. Dr. Bryan updated that mother was informed that more frequent feedings were needed and limiting feedings was not necessary. Infant was on the left breast in cradle position latched optimally upon entering room.
[2024-08-03 10:51] LABS: Hematocrit 38.4 % (37.0-47.0)
[2024-08-03 21:40] VITALS: BP 107/63; PULSE 83; RESP 16; TEMP 37
--- NOTE | 2024-08-04 06:00 | PM.OBPNVD ---
OB - PN: Subj Subjective Date/time seen: 08/04/24 06:00 Narrative: Pain OK. Would like to go home. OB - PN: Obj Data Labs 08/03/24 10:44 Labs: Laboratory Results - last 24 hr 08/03/24 10:44 Hgb 13.0 Hct 38.4 OB - PN A/P Plan Comments: A: PPD#2, doing well. P: Home to f/u 6 weeks. Time Spent With Patient Time: Total time spent is greater than 50% in coordination of care (as documented) at patient's floor/unit and/or counseling patient: Exam Psych: Other: AVSS ABD soft, nontender, fundus firm EXT nontender
[2024-08-04 06:52] VITALS: BP 126/72; PULSE 75; RESP 18; TEMP 36.9; O2SAT 98
[2024-08-04] MEDS: LEVOTHYROXINE SODIUM 100 MCG TABLET PO (06:52)
[2024-08-04] MEDS: LEVOTHYROXINE SODIUM 50 MCG TABLET PO (06:52)
[2024-08-04] MEDS: IBUPROFEN 600 MG TABLET PO (09:27)
[2024-08-04] MEDS: MULTIVIT/MIN/PREN/FOL AC/IRON TABLET 1 TAB PO (09:28)
[2024-08-04] MEDS: DOCUSATE SODIUM 100 MG CAPSULE PO (09:28)
[2024-08-04] MEDS: SIMETHICONE 80 MG TAB.CHEW PO (09:28)
[2024-08-04] MEDS: metFORMIN HCL 500 MG TABLET 1000 MG PO (09:29)
[2024-08-04] MEDS: ESCITALOPRAM OXALATE 10 MG TABLET 20 MG PO (09:29)
--- NOTE | 2024-08-04 10:35 | PC.NURSE ---
Mother verbalizes she is able to independently latch with appropriate positioning and alignment. She denies any nipple discomfort and is responsively . Infant is currently meeting outcomes for weight, output, jaundice, blood sugar and feeding frequencies of 8-12 times in 24 hours. Mother declines any additional assistance or education at this time. Mom has a history of PCOS and hypothyroid with low milk production. They are supplementing with formula after . Mother is encouraged to call for assistance if her infant doesn?t latch, pain with latching, questions or concerns. Mother voiced understanding of information shared along with the mom/baby guide for an additional resource. Reported to the Primary RN.
[2024-08-06 11:42] VITALS: BP 128/77; PULSE 60; RESP 18; TEMP 36.9; O2SAT 100
== END 2024-08-04 12:28 | disposition home or self-care (01) | DRG 807 ==
LOC: ANHLDR 08-02 01:04 → ANHOB2 08-04 10:38 → ANHLDR 08-06 10:37
PROVIDERS: Admitting Provider Obstetrics & Gynecology; Referring Provider Advanced Practice Midwife; Visit Provider Obstetrics & Gynecology
DX: O62.3 Precipitate labor (principal); Z37.0 Single live birth; Z3A.38 38 weeks gestation of pregnancy; O40.3XX0 Polyhydramnios, third trimester, not applicable or unspecified; O36.8330 Maternal care for abnormalities of the fetal heart rate or rhythm, third trimester, not applicable or unspecified; O99.284 Endocrine, nutritional and metabolic diseases complicating childbirth; E06.3 Autoimmune thyroiditis; O36.63X0 Maternal care for excessive fetal growth, third trimester, not applicable or unspecified; O71.82 Other specified trauma to perineum and vulva
CPT/HCPCS: 36415; 85014; 85018; 85025; 86592; 86703; 86850; 86900; 86901; 88307; A9270; G0432; J2590